=== PATIENT | female | born 1985 | race Two or more races ===

== ENCOUNTER 2019-08-15 16:56 | Emergency (ER) | payer MEDICAID, OTHER ==
[~2019-08-15] VITALS: Ht 162.6 cm; Wt 77.1 kg
[2019-08-15 16:59] VITALS: BP 122/81
--- NOTE | 2019-08-15 16:59 | NUR ---
ED Nurse Note: Pt brought in via EMS for near syncope at her dentist office 30 min [facility] TRAP[employer]. pt reports she was waiting for a deep dental clean, she was given a local anesthetic (lidocaine) on the left side of her mouth when she felt dizzy, lightheaded and tunnel vision. pt was also nauseated and vomited. upon EMS arrival pt apppeared to be pale, cool and diaphoretic. per EMS pt had positive orthostatics but was tachycardic at 132 and BP was 137/91 sitting which lowered to 100 when she stood up. pt states that she is currently still feeling light headed and a "pressure" in her chest.
--- NOTE | 2019-08-15 17:00 | NUR ---
ED Nurse Note: pt states that she has felt this way in the past when she had a panic attack 3 years ago and states that she was feeling anxious today prior to her dental procedure. pt has an IV in her L hand that was inserted via EMS
--- NOTE | 2019-08-15 17:15 | NUR ---
ED Nurse Note: pt was able to stand to use the bedsdie commode which she states she would not have been able to do before without feeling dizzy. pt is in stable condition but still tachycardic at 118, she is in no acute distress at this time
--- NOTE | 2019-08-15 17:15 | Emergency Room Report ---
History of Present Illness General Chief Complaint: Syncope Source: Patient Present Illness HPI 33-year-old female no past medical history has a surgical history of hernia repair presents with syncope/presyncope, patient felt lightheaded, patient was having a dental procedure she was being anesthetized with lidocaine, patient felt faintish her vision was narrowing, she felt nauseous, sweaty, this episode was aggravated by the anesthesia, no alleviating factors severity was severe, lasting a minute, patient denies any chest pain shortness of breath patient felt palpitations and presents for evaluation. Allergies: Coded Allergies: No Known Allergies (Unverified , 08/15/19) Patient History Past Medical History: see triage record Last Menstrual Period: 08/12/2019 Reviewed Nursing Documentation: PMH: Agreed; PSxH: Agreed Nursing Documentation-PMH Past Medical History: No Stated History Review of Systems All Other Systems: negative except mentioned in HPI Physical Exam Vital Signs Date Time Temp Pulse Resp B/P (MAP) Pulse Ox O2 Delivery O2 Flow Rate FiO2 08/15/19 17:00 98.8 132 18 137/91 (106) 99 Room Air Sp02 EP Interpretation: reviewed, normal General Appearance: well appearing, no apparent distress, alert Head: normocephalic, atraumatic Eyes: bilateral eye PERRL, bilateral eye EOMI ENT: uvula midline, moist mucus membranes Neck: supple, thyroid normal, supple/symm/no masses Respiratory: lungs clear, no respiratory distress, no retraction, no accessory muscle use Cardiovascular #1: normal peripheral pulses, no edema, no gallop, no murmur, tachycardia Gastrointestinal: non tender, soft, no guarding, no rebound Musculoskeletal: normal inspection Neurologic: alert, oriented x3 Psychiatric: mood/affect normal Skin: no rash, warm/dry Medical Decision Making Diagnostic Impression: Primary Impression: Pre-syncope ER Course 33-year-old female presents with presyncopal-like symptoms, low suspicion for ACS, low suspicion pneumonia or pneumothorax Tachycardia resolved with fluids, patient's syncope started with a slight injection to the mouth which triggered her symptoms Disposition home with return precautions WBC elevated 2/2 acute stress reaction. Laboratory Tests Test 08/15/19 17:10 08/15/19 17:56 White Blood Count 17.0 K/UL (4.8-10.8) H Red Blood Count 5.04 M/UL (4.20-5.40) Hemoglobin 15.3 G/DL (12.0-16.0) Hematocrit 45.0 % (37.0-47.0) Mean Corpuscular Volume 89 FL (80-99) Mean Corpuscular Hemoglobin 30.3 PG (27.0-31.0) Mean Corpuscular Hemoglobin Concent 33.9 G/DL (32.0-36.0) Red Cell Distribution Width 11.1 % (11.6-14.8) L Platelet Count 382 K/UL (150-450) Mean Platelet Volume 6.0 FL (6.5-10.1) L Neutrophils (%) (Auto) 82.6 % (45.0-75.0) H Lymphocytes (%) (Auto) 11.5 % (20.0-45.0) L Monocytes (%) (Auto) 5.1 % (1.0-10.0) Eosinophils (%) (Auto) 0.2 % (0.0-3.0) Basophils (%) (Auto) 0.7 % (0.0-2.0) Sodium Level 140 MMOL/L (136-145) Potassium Level 3.3 MMOL/L (3.5-5.1) L Chloride Level 104 MMOL/L (98-107) Carbon Dioxide Level 23 MMOL/L (21-32) Anion Gap 13 mmol/L (5-15) Blood Urea Nitrogen 14 mg/dL (7-18) Creatinine 0.7 MG/DL (0.55-1.30) Estimate Glomerular Filtration Rate > 60 mL/min (>60) Glucose Level 143 MG/DL (74-106) H Calcium Level 8.7 MG/DL (8.5-10.1) Total Bilirubin 0.2 MG/DL (0.2-1.0) Aspartate Amino Transferase (AST) 22 U/L (15-37) Alanine Aminotransferase (ALT) 37 U/L (12-78) Alkaline Phosphatase 117 U/L (46-116) H Troponin I 0.000 ng/mL (0.000-0.056) Total Protein 7.8 G/DL (6.4-8.2) Albumin 3.7 G/DL (3.4-5.0) Globulin 4.1 g/dL Albumin/Globulin Ratio 0.9 (1.0-2.7) L Urine HCG, Qualitative Negative (NEGATIVE) Urine Opiates Screen Negative (NEGATIVE) Urine Barbiturates Screen Negative (NEGATIVE) Phencyclidine (PCP) Screen Negative (NEGATIVE) Urine Amphetamines Screen Negative (NEGATIVE) Urine Benzodiazepines Screen Negative (NEGATIVE) Urine Cocaine Screen Negative (NEGATIVE) Urine Marijuana (THC) Screen Negative (NEGATIVE) EKG Diagnostic Results EKG Time: 17:06 EP Interpretation: Sinus tachycardia, rate 115, QTc 470, no acute ST elevations , normal axis Rhythm Strip Diag. Results Rhythm Strip Time: 17:15 EP Interpretation: yes Rate: 115 Rhythm: no PVC's, no ectopy, other - sinus tachycardia Chest X-Ray Diagnostic Results Chest X-Ray Diagnostic Results : Chest X-Ray Ordered: Yes # of Views/Limited/Complete: 1 View Indication: Other - palpitations EP Interpretation: Yes Interpretation: no consolidation, no effusion, no pneumothorax, no acute cardiopulmonary disease Impression: No acute disease Electronically Signed by: Garland Pacheco MD Last Vital Signs Date Time Temp Pulse Resp B/P (MAP) Pulse Ox O2 Delivery O2 Flow Rate FiO2 08/15/19 17:00 98.8 132 18 137/91 (106) 99 Room Air Disposition: HOME, SELF-CARE Condition: Stable Referrals: [facility]s [facility] Patient Instructions: Syncope Additional Instructions: The patient was provided with discharge instructions, notified to follow-up with a primary care doctor and or specialist in the next 24-48 hours, and to return to the ED if they have worsening of their symptoms. Please note that this report is being documented using [employer] technology. This can lead to erroneous entry secondary to incorrect interpretation by the dictating instrument. Garland Pacheco MD Aug 15, 2019 17:15
[2019-08-15 17:47] LABS: BASOPHILS % (AUTO) 0.7 % (0.0-2.0); EOSINOPHILS % (AUTO) 0.2 % (0.0-3.0); HEMOGLOBIN 15.3 G/DL (12.0-16.0); LYMPHOCYTES % (AUTO) 11.5 % (20.0-45.0); MEAN CORPUSCULAR VOLUME 89 FL (80-99); MONOCYTES % (AUTO) 5.1 % (1.0-10.0); NEUTROPHILS % (AUTO) 82.6 % (45.0-75.0); PLATELET COUNT 382 K/UL (150-450); RED BLOOD COUNT 5.04 M/UL (4.20-5.40); RED CELL DISTRIBUTION WIDTH 11.1 % (11.6-14.8)
[2019-08-15 17:53] LABS: ANION GAP 13 mmol/L (5-15); BLOOD UREA NITROGEN 14 mg/dL (7-18); CALCIUM 8.7 MG/DL (8.5-10.1); CARBON DIOXIDE 23 MMOL/L (21-32); CHLORIDE 104 MMOL/L (98-107); CREATININE 0.7 MG/DL (0.55-1.30); POTASSIUM 3.3 MMOL/L (3.5-5.1); SODIUM 140 MMOL/L (136-145)
[2019-08-15 17:57] LABS: ALANINE AMINOTRANSFERASE 37 U/L (12-78); ALBUMIN 3.7 G/DL (3.4-5.0); ALBUMIN/GLOBULIN RATIO 0.9 (1.0-2.7); ALKALINE PHOSPHATASE 117 U/L (46-116); ASPARTATE AMINO TRANSFERASE 22 U/L (15-37); BILIRUBIN,TOTAL 0.2 MG/DL (0.2-1.0)
--- NOTE | 2019-08-15 18:00 | NUR ---
ED Nurse Note: Patient resting in bed. HR decreased to 105/min. Reports no dizziness, chest pain. No facial grimacing or guarding noted. Family member at bedside.
[2019-08-15 18:45] VITALS: BP 118/77
--- NOTE | 2019-08-15 18:45 | NUR ---
ED Nurse Note: RN inserted IV to left AC 20g. Patient tolerated the procedure without difficulty.
--- NOTE | 2019-08-15 19:10 | NUR ---
ED Nurse Note: Report given to MARYLU Sotelo. Patient resting in bed. Patient awake, alert, oriented x 5. Regular, unlabored breathing noted.
[2019-08-15 19:42] VITALS: BP 125/78
[2019-08-15 21:07] VITALS: BP 125/78
--- NOTE | 2019-08-15 21:08 | NUR ---
ER DISCHARGE NOTE: Patient is cleared to be discharged per ERMD, pt is aox4, on room air, with stable vital signs. pt was given dc and prescription instructions, pt was able to verbalize understanding, pt id band and iv site removed without complications. pt is able to ambulate with steady gait. pt took all belongings.
--- NOTE | 2019-08-16 12:44 | Diagnostic Imaging Report ---
Indication: Dyspnea Comparison: None A single view chest radiograph was obtained. Findings: Cardiomediastinal appearance is within normal limits for age. The lungs are clear. Pulmonary vascularity is appropriate. The diaphragmatic contour is smooth and costophrenic angles are sharp. No pleural effusions are identified. The bones are unremarkable. Impression: No acute findings
--- NOTE | 2019-08-17 17:35 | Cardiology Report ---
APPROVED REPORT EKG Measurement Heart [id number] Sinus tachycardia Otherwise normal ECG
== END 2019-08-15 21:08 | disposition home or self-care (01) ==
LOC: EDBD 16:56 → EMR 17:30
DX: R55 Syncope and collapse (principal); R00.0 Tachycardia, unspecified
CPT/HCPCS: 36415; 71045; 80053; 80307; 81025; 84484; 85025; 93005; 96360; 96361; 99284